=== PATIENT | female | born 1995 | race Two or more races ===

== ENCOUNTER 2022-03-22 17:19 | Emergency (ER) | payer OTHER ==
[~2022-03-22] VITALS: Ht 157.5 cm; Wt 55.3 kg
[2022-03-22] MEDS ORDERED: PRENATAL + DHA1 EAC1 (17:43)
== END 2022-03-22 22:18 | disposition home or self-care (01) ==
LOC: ER 17:19
DX: O23.40 Unspecified infection of urinary tract in pregnancy, unspecified trimester (principal)

== ENCOUNTER 2022-04-29 09:57 | Emergency (ER) | payer OTHER ==
[~2022-04-29] VITALS: Ht 160 cm; Wt 56.2 kg
[~2022-04-29 09:57] MED LIST: PRENATAL + DHA1 EAC1
== END 2022-04-29 13:15 | disposition home or self-care (01) ==
LOC: ER 09:57
DX: O26.892 Other specified pregnancy related conditions, second trimester (principal); S13.4XXA Sprain of ligaments of cervical spine, initial encounter; S39.92XA Unspecified injury of lower back, initial encounter; V43.52XA Car driver injured in collision with other type car in traffic accident, initial encounter; Y93.9 Activity, unspecified; Y92.413 State road as the place of occurrence of the external cause; Z3A.16 16 weeks gestation of pregnancy

== ENCOUNTER 2022-05-29 19:53 | Emergency (ER) | payer OTHER ==
[~2022-05-29] VITALS: Ht 160 cm; Wt 57.6 kg
== END 2022-05-29 22:40 | disposition home or self-care (01) ==
LOC: ER 19:53
DX: O26.92 Pregnancy related conditions, unspecified, second trimester (principal); Z3A.23 23 weeks gestation of pregnancy; S29.9XXA Unspecified injury of thorax, initial encounter; V49.9XXA Car occupant (driver) (passenger) injured in unspecified traffic accident, initial encounter; Y93.9 Activity, unspecified; Y92.9 Unspecified place or not applicable

== ENCOUNTER 2022-09-17 08:21 | Inpatient (IN) | payer OTHER ==
[~2022-09-17] VITALS: Ht 160 cm; Wt 70.8 kg
== END 2022-09-19 19:05 | disposition home or self-care (01) | DRG 807 ==
LOC: OB/GYN 08:21 → LDR 08:21 → OB/GYN 22:35
PROVIDERS: ADMIT Obstetrics & Gynecology; ATTEND Obstetrics & Gynecology
PROC: 10E0XZZ Delivery of Products of Conception, External Approach (ICD-10-PCS; principal; 2022-09-17)
PROC: 4A1HXCZ Monitoring of Products of Conception, Cardiac Rate, External Approach (ICD-10-PCS; 2022-09-17)
DX: O80 Encounter for full-term uncomplicated delivery (principal); Z37.0 Single live birth; Z3A.39 39 weeks gestation of pregnancy; Z20.822 Contact with and (suspected) exposure to COVID-19

== ENCOUNTER 2025-03-20 09:01 | Emergency (ER) | payer OTHER ==
[~2025-03-20] VITALS: Ht 152.4 cm; Wt 60.8 kg
[2025-03-20] MEDS ORDERED: KETOROLAC TROMETHAMINE 15 MG VIAL IV ONE (11:30)
[2025-03-20] MEDS ORDERED: 0.9 % SODIUM CHLORIDE 1,000 ML IV ONE (11:30)
[2025-03-20 12:49] LABS: BASO % 0.6 % (0.1-1.2); EOS # 0.11 (0.04-0.54); EOS % 1.6 % (0.7-7.0); LYMPH # 1.40 (1.18-3.74); LYMPH % 20.0 % (19.3-53.1); MEAN PLATELET VOLUME 10.40 fl (9.4-12.4); MONO # 0.35 (0.24-0.82); MONO % 5.0 % (4.7-12.5); NEUT # 5.10 (1.56-6.13); NEUT % 72.7 % (34.0-71.1); RED CELL DISTRIBUTION WIDTH 11.7 % (11.6-14.4)
[2025-03-20 13:16] LABS: URINE APPEARANCE Clear; URINE BILIRRUBIN Negative (NEGATIVE); URINE BLOOD Large; URINE COLOR Yellow; URINE GLUCOSE Negative (NEGATIVE); URINE KETONE Negative (NEGATIVE); URINE LEUKOCYTE Trace; URINE NITRATE Negative; URINE PROTEIN Negative (NEGATIVE); URINE UROBILINOGEN 0.2 E.U./dl
[2025-03-20 13:17] LABS: ALT/SGPT 14.0 U/L (12-78); AST/SGOT 15.0 U/L (15-37); BILIRUBIN TOTAL 0.26 mg/dL (0.3-1.2); BUN CREA RATIO 11.0 (7.0-25.0); CREATININE SERUM 0.72 mg/dL (0.55-1.02); GFR 95.77; GLOBULINA 3.7 G/DL (2.4-3.5); GLUCOSE FASTING 118.0 mg/dL (65-100); HCG QUANTITATIVE 2.0 mUI/mL (1-3); OSMOLALITY SERUM 281.0 MOSM/KG (275-295)
[2025-03-20 13:21] LABS: URINE BACTERIA 709.1 uL (0.0-1933); URINE EPITHELIAL CELLS 19.5 uL (0.0-38.8); URINE RBC 12.9 uL (0.0-20.8); URINE WBC 25.3 uL (0.0-23.2)
[2025-03-20 13:22] LABS: URINE CAST 0.00 uL (0.0-1.40)
[2025-03-20] MEDS ORDERED: DIPHENHYDRAMINE HCL 50 MG/ML VIAL 1ML IV ONE (14:00)
[2025-03-20] MEDS ORDERED: METHYLPREDNISOLONE SOD SUCC 125 MG VIAL IV ONE (14:00)
[2025-03-20] MEDS ORDERED: NAPROXEN500 MG PO (17:36)
== END 2025-03-20 19:49 | disposition home or self-care (01) ==
LOC: ER 09:01
PROVIDERS: General Practice
DX: N83.209 Unspecified ovarian cyst, unspecified side (principal); R10.31 Right lower quadrant pain; R10.20 Pelvic and perineal pain unspecified side
CPT/HCPCS: 36415; 74177; Q9965